=== PATIENT | female | born 1980 | race Two or more races ===

== ENCOUNTER 2023-12-10 11:30 | Inpatient (IN) | payer OTHER ==
[~2023-12-10] VITALS: Ht 170.2 cm; Wt 63.5 kg
[2023-12-16] MEDS ORDERED: FOLIC ACID1 MG (13:22)
[2023-12-16] MEDS ORDERED: FERROUS SULFAT325 MG (13:22)
[2023-12-16] MEDS ORDERED: LOSARTAN POTASS50 MG (13:22)
[2023-12-16] MEDS ORDERED: POVIDONE-IODINE 118 ML BOTT TOP ONE ×2 (15:05→17:30)
[2023-12-16] MEDS ORDERED: CEFOXITIN SODIUM 2,000 MG VIAL IV ONE ×2 (15:05→17:30)
[2023-12-16] MEDS ORDERED: THROMBIN,HU/FIBRINOGEN/CALCIUM 10 ML SYRINGE TOP ONE ×2 (17:01→17:30)
[2023-12-16] MEDS ORDERED: MORPHINE SULFATE 4 MG/ML CARTRIDGE IV PRN (19:00)
[2023-12-16] MEDS ORDERED: RINGERS SOLUTION,LACTATED 1,000 ML IV SCH (19:00)
[2023-12-16] MEDS ORDERED: FAMOTIDINE/PF 20 MG/2 ML VIAL IV SCH (21:00)
[2023-12-17 00:37] LABS: HEMATOCRIT 25.7 % (36.0-45.00); HEMOGLOBIN 8.9 g/dL (12.0-15.00); MEAN CELL VOLUME 95.4 fL (80.00-100.00); MEAN CORPUSCULAR HEMOGLOBIN 32.9 pg (27.00-32.0); MEAN CORPUSCULAR HGB CONC 34.6 g/dl (32.0-36.0); PLATELET COUNT 165 K/uL (150-450); RED CELL DISTRIBUTION WIDTH 17.6 % (11.5-14.5)
[2023-12-17] MEDS ORDERED: KETOROLAC TROMETHAMINE 30 MG VIAL IV SCH (01:00)
[2023-12-17] MEDS ORDERED: CEFOXITIN SODIUM 2,000 MG VIAL IV SCH (01:00)
[2023-12-17] MEDS ORDERED: METOCLOPRAMIDE HCL 5 MG/ML VIAL IV SCH (01:00)
[2023-12-17 01:02] LABS: CALCIUM 8.8 mg/dL (8.5-10.1); CREATININE SERUM 1.05 mg/dL (0.55-1.02); GFR 57.2; POTASSIUM 4.03 mEq/L (3.5-5.1)
[2023-12-17 01:10] LABS: CALCIUM 8.9 mg/dL (8.5-10.1); CREATININE SERUM 1.03 mg/dL (0.55-1.02); GFR 58.48; POTASSIUM 3.98 mEq/L (3.5-5.1)
[2023-12-17 07:25] LABS: HEMATOCRIT 24.4 % (36.0-45.00); MEAN CELL VOLUME 95.4 fL (80.00-100.00); MEAN CORPUSCULAR HEMOGLOBIN 32.9 pg (27.00-32.0); MEAN CORPUSCULAR HGB CONC 34.5 g/dl (32.0-36.0); PLATELET COUNT 165 K/uL (150-450); RED BLOOD COUNT 2.55 M/uL (4.00-6.00); RED CELL DISTRIBUTION WIDTH 17.6 % (11.5-14.5)
[2023-12-17 07:30] LABS: HEMOGLOBIN 8.4 g/dL (12.0-15.00)
[2023-12-17] MEDS ORDERED: ENOXAPARIN SODIUM 40 MG/0.4 ML SYRINGE SUBCUTANEO SCH (09:00)
[2023-12-17] MEDS ORDERED: DOCUSATE SODIUM 100MG CAP PO SCH (09:00)
[2023-12-17] MEDS ORDERED: SIMETHICONE 125 MG CAPSULE PO SCH (11:00)
[2023-12-17 18:46] LABS: HEMATOCRIT 24.4 % (36.0-45.00); HEMOGLOBIN 8.3 g/dL (12.0-15.00); MEAN CELL VOLUME 96.1 fL (80.00-100.00); MEAN CORPUSCULAR HEMOGLOBIN 32.6 pg (27.00-32.0); MEAN CORPUSCULAR HGB CONC 34.2 g/dl (32.0-36.0); PLATELET COUNT 183 K/uL (150-450); RED BLOOD COUNT 2.54 M/uL (4.00-6.00); RED CELL DISTRIBUTION WIDTH 17.8 % (11.5-14.5)
[2023-12-17 19:25] LABS: ALBUMIN 3.3 gm/dL (3.4-5.0); BILIRUBIN TOTAL 0.6 mg/dL (0.3-1.2); CALCIUM 8.5 mg/dL (8.5-10.1); CREATININE SERUM 2.4 mg/dL (0.55-1.02); GFR 22.03; GLOBULINA 3.7 G/DL (2.4-3.5); POTASSIUM 3.45 mEq/L (3.5-5.1)
[2023-12-18] MEDS ORDERED: OxyCODONE HCL/APAP UD (PERCOCET) PO PRN (10:30)
[2023-12-18 11:20] LABS: MEAN CELL VOLUME 95.5 fL (80.00-100.00); MEAN CORPUSCULAR HGB CONC 33.8 g/dl (32.0-36.0); PLATELET COUNT 164 K/uL (150-450); RED BLOOD COUNT 2.46 M/uL (4.00-6.00); RED CELL DISTRIBUTION WIDTH 17.9 % (11.5-14.5)
[2023-12-18 12:19] LABS: MEAN CORPUSCULAR HEMOGLOBIN 32.1 pg (27.00-32.0)
[2023-12-18 12:21] LABS: HEMATOCRIT 23.5 % (36.0-45.00); HEMOGLOBIN 7.9 g/dL (12.0-15.00)
[2023-12-18 12:22] LABS: CALCIUM 8.7 mg/dL (8.5-10.1); CREATININE SERUM 1.19 mg/dL (0.55-1.02); GFR 49.51; POTASSIUM 3.29 mEq/L (3.5-5.1)
[2023-12-18] MEDS ORDERED: POTASSIUM CHLORIDE 8 MEQ TABLET PO SCH (13:00)
[2023-12-18] MEDS ORDERED: MORPHINE SULFATE 4 MG/ML CARTRIDGE IV PRN (16:30)
[2023-12-19] MEDS ORDERED: ENOXAPARIN SODIUM 30 MG/0.3 ML SYRINGE SUBCUTANEO SCH (09:00)
[2023-12-19 12:31] LABS: HEMATOCRIT 26.1 % (36.0-45.00); MEAN CELL VOLUME 94.3 fL (80.00-100.00); MEAN CORPUSCULAR HEMOGLOBIN 32.7 pg (27.00-32.0); MEAN CORPUSCULAR HGB CONC 34.7 g/dl (32.0-36.0); PLATELET COUNT 170 K/uL (150-450); RED BLOOD COUNT 2.76 M/uL (4.00-6.00); RED CELL DISTRIBUTION WIDTH 17.4 % (11.5-14.5)
[2023-12-19 13:05] LABS: ALBUMIN 3.1 gm/dL (3.4-5.0); BILIRUBIN TOTAL 0.61 mg/dL (0.3-1.2); CALCIUM 9.2 mg/dL (8.5-10.1); GFR 60.51; GLOBULINA 3.9 G/DL (2.4-3.5); POTASSIUM 3.65 mEq/L (3.5-5.1)
[2023-12-20 03:36] LABS: HEMATOCRIT 26.9 % (36.0-45.00); HEMOGLOBIN 9.4 g/dL (12.0-15.00); MEAN CELL VOLUME 91.4 fL (80.00-100.00); MEAN CORPUSCULAR HEMOGLOBIN 31.8 pg (27.00-32.0); MEAN CORPUSCULAR HGB CONC 34.8 g/dl (32.0-36.0); PLATELET COUNT 165 K/uL (150-450); RED BLOOD COUNT 2.95 M/uL (4.00-6.00); RED CELL DISTRIBUTION WIDTH 18.5 % (11.5-14.5)
[2023-12-20 07:20] LABS: CALCIUM 8.9 mg/dL (8.5-10.1); CREATININE SERUM 1.03 mg/dL (0.55-1.02); GFR 58.48; POTASSIUM 4.14 mEq/L (3.5-5.1)
== END 2023-12-20 10:14 | disposition home or self-care (01) | DRG 737 ==
LOC: O/R 12-16 05:13 → SURH 12-16 11:30 → OB/GYN 12-16 20:09 → O/R 12-16 20:15 → SURG 12-16 21:25
PROVIDERS: Internal Medicine; Obstetrics & Gynecology; ADMIT Obstetrics & Gynecology Gynecologic Oncology; ATTEND Obstetrics & Gynecology Gynecologic Oncology
PROC: 0DBW0ZZ Excision of Peritoneum, Open Approach (ICD-10-PCS; 2023-12-16)
PROC: 0UT70ZZ Resection of Bilateral Fallopian Tubes, Open Approach (ICD-10-PCS; 2023-12-16)
PROC: 0UT20ZZ Resection of Bilateral Ovaries, Open Approach (ICD-10-PCS; 2023-12-16)
PROC: 07BD0ZZ Excision of Aortic Lymphatic, Open Approach (ICD-10-PCS; 2023-12-16)
PROC: 07BC0ZZ Excision of Pelvis Lymphatic, Open Approach (ICD-10-PCS; 2023-12-16)
PROC: 0DBU0ZZ Excision of Omentum, Open Approach (ICD-10-PCS; 2023-12-16)
PROC: 3E1M38Z Irrigation of Peritoneal Cavity using Irrigating Substance, Percutaneous Approach (ICD-10-PCS; 2023-12-16)
PROC: 0UT90ZZ Resection of Uterus, Open Approach (ICD-10-PCS; principal; 2023-12-16 19:45)
PROC: 30233N1 Transfusion of Nonautologous Red Blood Cells into Peripheral Vein, Percutaneous Approach (ICD-10-PCS; 2023-12-18)
DX: C56.3 Malignant neoplasm of bilateral ovaries (principal); C48.1 Malignant neoplasm of specified parts of peritoneum; C77.5 Secondary and unspecified malignant neoplasm of intrapelvic lymph nodes; C77.2 Secondary and unspecified malignant neoplasm of intra-abdominal lymph nodes; C78.6 Secondary malignant neoplasm of retroperitoneum and peritoneum; D62 Acute posthemorrhagic anemia; C55 Malignant neoplasm of uterus, part unspecified; C76.3 Malignant neoplasm of pelvis; Z20.822 Contact with and (suspected) exposure to COVID-19

== ENCOUNTER 2024-10-11 17:31 | Inpatient (IN) | payer OTHER ==
[~2024-10-11] VITALS: Ht 170.2 cm; Wt 94.3 kg
[~2024-10-11 17:31] MED LIST: FERROUS SULFAT325 MG; FOLIC ACID1 MG; LOSARTAN POTASS50 MG
--- NOTE | 2024-10-11 17:32 | NUR ---
PACIENTE ALERTA Y ORIENTADA X 3. REFIERE 3 CHOU CON DOLOR ABDOMINAL, BONNIE VOMITOS X 2 Y HOY NAUSEAS.
--- NOTE | 2024-10-11 17:40 | NUR ---
PTE REFIERE TENER SUSI MASA EN ABDOMEN Y VENIR A ER POR ORDEN DE DRA JOY SINGH PARA ADMISION. SE REALIZA EKG Y SE PRESENTA A DR CARBALLO, PULSO 130
[2024-10-11] MEDS ORDERED: MORPHINE SULFATE 4 MG/ML VIAL IV ONE (18:15)
[2024-10-11] MEDS ORDERED: 0.9 % SODIUM CHLORIDE 1,000 ML IV SCH ×2 (18:15→22:15)
[2024-10-11] MEDS ORDERED: ONDANSETRON HCL 2 MG/ML VIAL IV ONE (18:15)
[2024-10-11] MEDS ORDERED: ONDANSETRON HCL 2 MG/ML VIAL ONE (18:25)
--- NOTE | 2024-10-11 18:55 | NUR ---
SE ORIENTA A PACIENTE SOBRE ORDEN MEDICA LA MISMA REFIERE ENTENDER Y ACEPTA.
[2024-10-11 18:56] LABS: BASO % 0.3 % (0.1-1.2); EOS # 0.02 (0.04-0.54); EOS % 0.3 % (0.7-7.0); HEMATOCRIT 27.2 % (34.1-44.9); LYMPH # 0.46 (1.18-3.74); LYMPH % 7.2 % (19.3-53.1); MEAN CORPUSCULAR HEMOGLOBIN 30.3 pg (25.6-32.2); MONO # 0.92 (0.24-0.82); NEUT # 4.93 (1.56-6.13); NEUT % 76.9 % (34.0-71.1); PLATELET COUNT 188 K/uL (163-369); RED BLOOD COUNT 2.94 M/uL (3.93-5.22); RED CELL DISTRIBUTION WIDTH 15.8 % (11.6-14.4)
[2024-10-11 18:59] LABS: HEMOGLOBIN 8.9 g/dL (11.2-15.7); MONO % 14.4 % (4.7-12.5)
[2024-10-11 19:17] LABS: INR 1.26; PROTHROMBIN TIME 13.5 SECONDS (9.0-11.5)
[2024-10-11 19:22] LABS: BILIRUBIN TOTAL 0.46 mg/dL (0.3-1.2); CALCIUM 8.9 mg/dL (8.5-10.1); CREATININE SERUM 1.01 mg/dL (0.55-1.02); GFR 59.54; GLOBULINA 4.2 G/DL (2.4-3.5); POTASSIUM 3.87 mEq/L (3.5-5.1); TOTAL PROTEIN 7.2 gm/dL (6.4-8.2)
[2024-10-11] MEDS ORDERED: FAMOTIDINE/PF 20 MG in 0.9 % SODIUM CHLORIDE 8 ML IV PUSH SCH (22:06)
[2024-10-11] MEDS ORDERED: ONDANSETRON HCL 4 MG in 0.9 % SODIUM CHLORIDE 50 ML IV PRN (22:15)
[2024-10-11] MEDS ORDERED: MORPHINE SULFATE 4 MG/ML CARTRIDGE IV PRN (22:15)
[2024-10-12] VITALS: BP 112/78; O2SAT 97
[2024-10-12] MEDS ORDERED: PIPERACILLIN/TAZOBACTAM SODIUM 3.375 GM in DEXTROSE 5 % IN WATER 100 ML IV SCH
[2024-10-12] MEDS ORDERED: FAMOTIDINE/PF 20 MG/2 ML VIAL ONE (03:25)
[2024-10-12] MEDS ORDERED: PIPERACILLIN/TAZOBACTAM SODIUM 3.375 GM VIAL IV ONE (03:25)
[2024-10-12] MEDS ORDERED: ONDANSETRON HCL 2 MG/ML VIAL ONE (03:25)
[2024-10-12 04:47] LABS: COVID-19 AG NEGATIVE (NEGATIVE)
[2024-10-12 05:24] VITALS: BP 127/72; O2SAT 100
[2024-10-12 08:00] VITALS: BP 121/82; O2SAT 98
[2024-10-12 08:42] LABS: PH,URINE 5.5 (5.0-8.0); URINE APPEARANCE Clear; URINE BILIRRUBIN Moderate (NEGATIVE); URINE COLOR Dark Yellow; URINE GLUCOSE Negative (NEGATIVE); URINE LEUKOCYTE Trace; URINE NITRATE Negative; URINE PROTEIN 30 (NEGATIVE)
[2024-10-12 08:43] LABS: URINE BACTERIA 176.2 uL (0.0-1933); URINE CAST 2.79 uL (0.0-1.40); URINE EPITHELIAL CELLS 28.9 uL (0.0-38.8); URINE RBC 61.4 uL (0.0-20.8); URINE WBC 67.9 uL (0.0-23.2)
[2024-10-12 08:59] LABS: URINE BLOOD TRACES; URINE CRYSTALS FEW /HPF; URINE KETONE 80 (NEGATIVE); URINE MUCUS MODERATE
[2024-10-12 15:35] LABS: BASO % 0.2 % (0.1-1.2); EOS # 0.03 (0.04-0.54); EOS % 0.6 % (0.7-7.0); HEMATOCRIT 27.1 % (34.1-44.9); LYMPH # 0.67 (1.18-3.74); MONO # 0.74 (0.24-0.82); NEUT # 3.68 (1.56-6.13); NEUT % 71.3 % (34.0-71.1); PLATELET COUNT 207 K/uL (163-369); RED BLOOD COUNT 2.87 M/uL (3.93-5.22); RED CELL DISTRIBUTION WIDTH 15.9 % (11.6-14.4)
[2024-10-12 15:48] LABS: HEMOGLOBIN 8.6 g/dL (11.2-15.7); MONO % 14.3 % (4.7-12.5)
[2024-10-12 16:06] LABS: BILIRUBIN TOTAL 0.6 mg/dL (0.3-1.2); CALCIUM 8.5 mg/dL (8.5-10.1); CREATININE SERUM 0.99 mg/dL (0.55-1.02); GFR 60.93; GLOBULINA 3.7 G/DL (2.4-3.5); POTASSIUM 3.95 mEq/L (3.5-5.1); TOTAL PROTEIN 6.7 gm/dL (6.4-8.2)
[2024-10-12 16:22] VITALS: BP 115/77; O2SAT 100
[2024-10-12 20:44] LABS: TP PERITONEAL FLUID 5.2 g/dl
[2024-10-13 00:37] VITALS: BP 102/69; O2SAT 99
[2024-10-13] MEDS ORDERED: SIMETHICONE 125 MG CAPSULE PO SCH (13:00)
[2024-10-13 16:00] VITALS: BP 128/86; O2SAT 100
[2024-10-13] MEDS ORDERED: PANTOPRAZOLE SODIUM 40 MG/VIAL VIAL IV PUSH STA (21:34)
[2024-10-13] MEDS ORDERED: MORPHINE SULFATE 4 MG/ML CARTRIDGE IV PRN (22:45)
[2024-10-14 00:36] VITALS: BP 124/87; O2SAT 100
[2024-10-14 08:00] VITALS: BP 132/88; O2SAT 97
[2024-10-14 08:17] VITALS: BP 130/87; O2SAT 95
[2024-10-14 08:35] LABS: BASO % 0.4 % (0.1-1.2); EOS # 0.02 (0.04-0.54); EOS % 0.4 % (0.7-7.0); LYMPH # 0.52 (1.18-3.74); LYMPH % 10.9 % (19.3-53.1); MEAN CORPUSCULAR HEMOGLOBIN 30.6 pg (25.6-32.2); MONO # 0.95 (0.24-0.82); NEUT # 3.22 (1.56-6.13); NEUT % 67.7 % (34.0-71.1); PLATELET COUNT 185 K/uL (163-369); RED BLOOD COUNT 2.68 M/uL (3.93-5.22); RED CELL DISTRIBUTION WIDTH 15.9 % (11.6-14.4)
[2024-10-14 08:36] LABS: HEMATOCRIT 25.2 % (34.1-44.9)
[2024-10-14 08:37] LABS: HEMOGLOBIN 8.2 g/dL (11.2-15.7)
[2024-10-14] MEDS ORDERED: PANTOPRAZOLE SODIUM 40 MG/VIAL VIAL IV PUSH SCH (09:00)
[2024-10-14] MEDS ORDERED: FAMOTIDINE/PF 20 MG in 0.9 % SODIUM CHLORIDE 8 ML IV PUSH SCH (21:00)
[2024-10-14 21:56] LABS: ob NEGATIVE (NEGATIVE)
[2024-10-15] VITALS: BP 150/98; O2SAT 95
[2024-10-15 08:36] LABS: BASO % 0.3 % (0.1-1.2); LYMPH # 0.54 (1.18-3.74); LYMPH % 9.2 % (19.3-53.1); MEAN CORPUSCULAR HEMOGLOBIN 30.4 pg (25.6-32.2); MONO # 0.75 (0.24-0.82); NEUT # 4.49 (1.56-6.13); PLATELET COUNT 198 K/uL (163-369); RED CELL DISTRIBUTION WIDTH 15.9 % (11.6-14.4)
[2024-10-15 08:47] VITALS: BP 122/86; O2SAT 98
[2024-10-15 08:48] LABS: ALBUMIN 2.3 gm/dL (3.4-5.0); BILIRUBIN TOTAL 0.31 mg/dL (0.3-1.2); CREATININE SERUM 0.68 mg/dL (0.55-1.02); GFR 93.99; GLOBULINA 3.2 G/DL (2.4-3.5); POTASSIUM 3.86 mEq/L (3.5-5.1); TOTAL PROTEIN 5.5 gm/dL (6.4-8.2)
[2024-10-15] MEDS ORDERED: PANTOPRAZOLE SODIUM 40 MG/VIAL VIAL IV PUSH SCH (09:00)
[2024-10-15 09:06] LABS: HEMATOCRIT 25.4 % (34.1-44.9); HEMOGLOBIN 8.2 g/dL (11.2-15.7); MONO % 12.8 % (4.7-12.5)
[2024-10-15 15:53] VITALS: BP 130/86; O2SAT 99
[2024-10-15] MEDS ORDERED: METOCLOPRAMIDE HCL 5 MG/ML VIAL IV SCH (17:00)
[2024-10-16 00:03] VITALS: BP 126/82; O2SAT 98
[2024-10-16 06:47] LABS: BASO % 0.5 % (0.1-1.2); EOS # 0.02 (0.04-0.54); EOS % 0.5 % (0.7-7.0); LYMPH # 0.64 (1.18-3.74); LYMPH % 15.1 % (19.3-53.1); MEAN CORPUSCULAR HEMOGLOBIN 29.8 pg (25.6-32.2); MONO # 0.78 (0.24-0.82); NEUT # 2.74 (1.56-6.13); NEUT % 64.3 % (34.0-71.1); PLATELET COUNT 172 K/uL (163-369); RED BLOOD COUNT 2.58 M/uL (3.93-5.22); RED CELL DISTRIBUTION WIDTH 15.9 % (11.6-14.4)
[2024-10-16 08:10] LABS: HEMATOCRIT 24.1 % (34.1-44.9); MONO % 18.4 % (4.7-12.5)
[2024-10-16 08:11] LABS: HEMOGLOBIN 7.7 g/dL (11.2-15.7)
[2024-10-16 08:25] VITALS: BP 130/85; O2SAT 98
[2024-10-16] MEDS ORDERED: METOCLOPRAMIDE HCL 5 MG/ML VIAL IV SCH (09:00)
[2024-10-16] MEDS ORDERED: MORPHINE SULFATE 4 MG/ML CARTRIDGE IV PRN (09:45)
[2024-10-16 16:00] VITALS: BP 141/91; O2SAT 100
[2024-10-16] MEDS ORDERED: PANTOPRAZOLE SODIUM 40 MG/VIAL VIAL IV PUSH SCH (21:00)
[2024-10-17 00:32] VITALS: BP 129/89; O2SAT 98
[2024-10-17 08:00] LABS: BASO % 0.2 % (0.1-1.2); EOS # 0.02 (0.04-0.54); EOS % 0.4 % (0.7-7.0); LYMPH # 0.76 (1.18-3.74); LYMPH % 15.8 % (19.3-53.1); MEAN CORPUSCULAR HEMOGLOBIN 29.5 pg (25.6-32.2); MONO # 0.83 (0.24-0.82); NEUT # 3.14 (1.56-6.13); NEUT % 65.2 % (34.0-71.1); PLATELET COUNT 171 K/uL (163-369); RED BLOOD COUNT 2.95 M/uL (3.93-5.22); RED CELL DISTRIBUTION WIDTH 18.8 % (11.6-14.4)
[2024-10-17 08:32] LABS: HEMATOCRIT 26.6 % (34.1-44.9); HEMOGLOBIN 8.7 g/dL (11.2-15.7); MONO % 17.2 % (4.7-12.5)
[2024-10-17 08:33] VITALS: BP 129/87; O2SAT 99
[2024-10-17] MEDS ORDERED: DOCUSATE SODIUM 100MG CAP PO SCH (09:47)
== END 2024-10-17 14:14 | disposition home or self-care (01) | DRG 389 ==
LOC: ER 20:55 → SURG 22:08 → SURH 10-12 16:43
PROVIDERS: General Practice; Radiology Vascular & Interventional Radiology; Student in an Organized Health Care Education/Training Program; ADMIT Internal Medicine; ATTEND Internal Medicine
PROC: BW21ZZZ Computerized Tomography (CT Scan) of Abdomen and Pelvis (ICD-10-PCS; 2024-10-11)
PROC: 0W9G3ZZ Drainage of Peritoneal Cavity, Percutaneous Approach (ICD-10-PCS; principal; 2024-10-12)
PROC: 30233N1 Transfusion of Nonautologous Red Blood Cells into Peripheral Vein, Percutaneous Approach (ICD-10-PCS; 2024-10-16)
DX: K56.609 Unspecified intestinal obstruction, unspecified as to partial versus complete obstruction (principal); R18.8 Other ascites; Z85.43 Personal history of malignant neoplasm of ovary